=== PATIENT | male | born 1950 | race Caucasian/White ===

== ENCOUNTER 2019-08-28 09:07 | Inpatient (IN) | payer MEDICARE, SELFPAY ==
[2019-08-28 09:09] VITALS: BP 187/69; PULSE 68; RESP 22; TEMP 36.6; O2SAT 98; BMI 56.0
--- NOTE | 2019-08-28 09:16 | XRR_ITS ---
PROCEDURE INFORMATION: Exam: XR Chest, 1 View Exam date and time: 08/28/2019 9:19 AM Age: 69 years old Clinical indication: Shortness of breath; Cough TECHNIQUE: Imaging protocol: XR of the chest Views: 1 view. COMPARISON: CR Chest 1 [place] [id number] 11/01/2016 11:38 AM FINDINGS: Lungs: Poor inspiration. Decreased lung volumes. No focal peripheral lung consolidation, air bronchogram formation, or silhouette sign. Pleural space: No pleural effusion or pneumothorax. Heart/Mediastinum: The cardiac silhouette is enlarged, accentuated by epicardial fat pads. The mediastinal contours are normal. Bones/joints: No acute osseous abnormality. XR/XR chest 1V portable [id number] IMPRESSION: No pneumonia.
--- NOTE | 2019-08-28 09:18 | ECG_ITS ---
Measurements Intervals [place] Rate: 67 P: 21 FL: 174 QRS: -7 QRSD: 107 T: 65 QT: 389 QTc: 412 SINUS RHYTHM LOW QRS VOLTAGE IN PRECORDIAL LEADS [QRS DEFLECTION < 1.0 mV IN CHEST LEADS] NONSPECIFIC T-WAVE ABNORMALITY Compared to ECG 11/01/2016 11:14:30 T-wave abnormality now present First degree AV block no longer present Electronically Signed On 08-28-2019 20:23:59 CDT by Bryan Gaming M.D. [id number]
--- NOTE | 2019-08-28 09:24 | ED_ITS ---
HPI - SOB/Dyspnea General: Chief Complaint: Shortness of Breath/Dyspnea Stated Complaint: DIFFICULTY BREATHING Time Seen by Provider: 08/28/19 09:09 History of Present Illness: HPI Narrative: Pérez is a 69-year-old male who comes in complaining of shortness of breath. States he is also had increased edema and a dull chest ache. States the symptoms of been going on for the past few days and get getting progressively worse. He denies any fever or cough. He feels as though this is his congestive heart failure just getting worse. He has orthopnea and dyspnea on exertion. He states he is not for certain how much but he knows his overall body weight is gone up and that is secondary to water retention. Associated symptoms: Reports chest pain; Deny abdominal pain, chest congestion, diaphoresis, dizziness, extremity pain, fever(s), hemoptysis, nausea, orthopnea, palpitations, polydipsia, syncope or vomiting Review of Systems General: Reports: other (negative unless marked) Const: Denies: fever, chills, body aches, fatigue, malaise or diaphoresis Eyes: Denies: change in vision or blurry vision ENMT: Denies: throat pain, painful swallowing, hoarseness, ear pain, ear discharge, Change in hearing or nasal discharge Card: Reports: chest pain; Denies: palpitations, irregular heart rhythm, syncope, pre-syncope, shortness of breath on exertion or shortness of breath when lying down Resp: Reports: shortness of breath; Denies: productive cough, non-productive cough, wheezing, coughing up blood or chest congestion GI: Denies: abdominal pain, nausea, vomiting, vomiting blood, coffee grounds in vomit, diarrhea, constipation, cramping, blood in stool or black tarry stool : Denies: flank pain, difficulty urinating, painful urination, urinary frequency, urinary urgency, decreased urine ouput, urinary incontinence or blood in urine Musc: Denies: neck pain, back pain, extremity pain, extremity swelling, joint pain, joint swelling, joint warmth or joint stiffness Skin/Breast: Denies: rash, skin tenderness or yellow skin Neuro: Denies: headache, numbness in extremities, weakness in extremities, changes in sensation, lack of coordination, difficulty walking, dizziness, vertigo or confusion Endo: Denies: excessive thirst, tired all the time, cold intolerance, excessive sweating, flushing or hot flashes Angelito/Lymph: Denies: easy bruising, easy bleeding, petechiae or enlarged lymph nodes All/Imm: Denies: hives, throat swelling, tongue swelling, facial swelling or acute wheezing PFSH ED PFSH: Medical History (Updated 08/28/19 @ 12:17 by Arelis Joya) Arthritis Chronic fatigue syndrome Congestive heart failure CVA (cerebral vascular accident) Diabetes type 2, uncontrolled Gout Hyperlipidemia Hypertension Migraines Morbid obesity Surgical History No history of previous surgery Social History Smoking and tobacco status: former smoker Physical Exam Const: COMMON NORMALS: no apparent distress, oriented x3, no limitations, healthy appearing and well nourished EXAM LIMITATIONS: no altered mental status GENERAL APPEARANCE: cooperative, well kempt and well developed ORIENTATION/CONSCIOUSNESS: Yes awake HENMT: COMMON NORMALS: normocephalic, head/scalp atraumatic, hearing grossly normal bilaterally, external ears normal, EAC's normal, external nose normal and moist oral mucous membranes HEAD & SCALP: normal to inspection, normocephalic and atraumatic FACE & SINUS: normal facial exam and face symmetric NOSE: external nose normal and nares normal EXTERNAL EAR: Yes external ears normal EXTERNAL AUDITORY CANAL: EAC's normal MOUTH: oral and palatal mucosa normal and tongue normal Eye: COMMON NORMALS: PERRL, EOMs intact bilaterally, conjunctivae normal and no scleral icterus GENERAL EYE: normal appearance of both eyes and normal light reflex CONJUNCTIVA: Yes conjunctivae normal SCLERA: sclerae normal CORNEA: Yes corneas normal PUPIL: Yes PERRL DIRECT OPHTHALMOSCOPY: Yes normal light reflex Neck/C-Spine: COMMON NORMALS: full ROM, no lymphadenopathy, supple, no meningeal signs and no JVD GENERAL: Yes normal visual inspection and Yes trachea midline CERVICAL SPINE: Yes cervical ROM normal Chest: COMMONS NORMALS: inspection of chest normal and palpation of chest normal Resp: COMMON NORMALS: normal respiratory effort, no retractions and no use of accessory muscles EFFORT & INSPECTION: Yes able to speak in complete sentences AUSCULTATION: rales Cardio: COMMON NORMALS: no JVD, regular rate, regular rhythm, S1 normal heart sound, S2 normal heart sound, no gallops, no clicks, no murmurs and no rub JUGULAR VENOUS DISTENTION: no JVD RATE: regular rate RHYTHM: regular rhythm HEART SOUNDS: S1 normal and S2 normal GI: COMMON NORMALS: soft to palpation, non-tender, no hepatosplenomegaly and no masses INSPECTION: Yes normal to inspection PALPATION: Yes soft and Yes no hepatosplenomegaly : COMMON NORMALS: Yes no CVA tenderness BLADDER/KIDNEY EXAM: Yes no CVA tenderness Back/Pelvis: COMMON NORMALS: no CVA tenderness, thoracic and lumbar spine normal to inspection, no thoracic nor lumbar tenderness and thoraco-lumbar ROM normal Extremity: COMMON NORMALS: normal to inspection, full ROM, normal capillary refill, no joint enlargement and no calf tenderness NARRATIVE EXTREMITY EXAM: Bilateral lower extremity edema and swelling Neuro: COMMON NORMALS: oriented x3, CN's II-XII intact bilaterally, moves all extremities, no focal motor deficits and no sensory deficits noted MENINGEAL SIGNS: Yes no meningeal signs Psych: COMMON NORMALS: mental status grossly normal, thought process normal, cooperative, affect normal, speech normal and activity/motor behavior normal APPEARANCE: Yes well kempt SPEECH: Yes normal speech THOUGHT PROCESS: normal thought process Skin: COMMON NORMALS: no rashes or lesions noted, skin turgor normal, no jaundice, no petechiae and no mottling GENERAL SKIN EXAM: no rashes or lesions noted and turgor normal Course Vital Signs: Vital signs: Vital Signs Temperature 97.8 F 08/28/19 09:09 Pulse Rate 68 08/28/19 09:09 Respiratory Rate 22 H 08/28/19 09:09 Blood Pressure 187/69 08/28/19 09:09 Pulse Oximetry 98 08/28/19 09:09 MDM - SOB/Dyspnea MDM Narrative: Medical decision making narrative: The case was reviewed with Dr. Ba. He agrees to come admit the patient. He will come to see the patient in the ER and write orders. He would like a CT scan of the patient's abdominal panniculus to be certain there is no deep space abscess. He will evaluate the patient after this is performed. Lab Data: Attestation: I reviewed the patient's lab results. Labs: Lab Results 08/28/19 08/28/19 08/28/19 Range/Units 08:58 08:58 08:58 WBC 21.9 H (4.0-10.0) 10^3/ uL RBC 4.87 (4.1-5.3) 10^6/u L Hgb 12.7 (11.7-16.6) g/dL Hct 42.5 (42.0-52.0) % MCV 87.3 (80-94) fL MCH 26.1 L (28.0-34.0) pg MCHC 29.9 L (30.0-36.0) g/dL RDW 16.5 H (12.1-15.1) % Plt Count 459 H (130-400) 10^3/c mm MPV 10.0 (7.4-10.4) fL Neut % (Auto) 42.8 % Lymph % (Auto) 49.3 % Dickson % (Auto) 3.9 % Eos % (Auto) 3.1 % Baso % (Auto) 0.4 % Neut # (Auto) 9.4 H (1.8-7.7) 10^3/u L Lymph # (Auto) 10.8 H (0.8-4.8) 10^3/u L Dickson # (Auto) 0.9 (0.2-0.9) 10^3/u L Eos # (Auto) 0.7 (0.0-0.8) 10^3/u L Baso # (Auto) 0.1 (0.0-0.1) 10^3/u L Nucleated RBC % (a uto) 0 % Nucleated RBCs # 0.0 /100WBC PT 12.70 (10.5-13.3) SECO NDS INR 0.96 (0.8-1.2) Specimen Type Sample Site ABG pH (7.35-7.45) ABG pCO2 (35-45) mmHg ABG pO2 (80.0-100.0) mmH g ABG HCO3 (22-26) mmol/L ABG Base Excess (-2.0-2.0) mmol/ L Kevin Test Hematocrit (42-52) % O2 Delivery Device FiO2 % Road Crossing Guard ID Sodium 141 (136-145) mmol/L Potassium 4.0 (3.5-5.1) mmol/L Chloride 100 (98-107) mmol/L Carbon Dioxide 28 (22-29) mmol/L Anion Gap 17.0 (5-19) BUN 9 (8-23) mg/dL Creatinine 0.9 (0.7-1.2) mg/dL Glucose 82 (65-115) mg/dL Calculated Osmolal ity 287 (285-295) mOsm/k g Lactic Acid (0.5-2.2) mmol/L Calcium 9.4 (8.5-10.5) mg/dL Magnesium 2.0 (1.7-2.3) mg/dL Total Bilirubin 0.2 (0.15-1.2) mg/dL AST 18 (0-40) U/L ALT 11 (0-41) U/L Alkaline Phosphata se 128 (40-130) IU/L Troponin T Baselin e (0-15) ng/mL Troponin T 120 Min venetie (0-15) ng/mL Delta Troponin T (0-10) ABS# NT-Pro-B Natriuret Pep 128 H (0-125) pg/mL Total Protein 7.5 (6.6-8.7) g/dL Albumin 3.6 (3.5-5.2) g/dL Globulin 3.9 (1.3-4.6) g/dL Urine Color (Yellow) Urine Appearance (CLEAR) Urine pH (5-7) Ur Specific Gravit y (1.005-1.030) Urine Protein (Negative) Urine Glucose (UA) (Normal) Urine Ketones (Negative) Urine Blood (Negative) Urine Nitrate (Negative) Urine Bilirubin (NEGATIVE) Urine Urobilinogen (Negative) mg/dL Ur Leukocyte Bernice ase (Negative) Urine RBC (0-2) /hpf Urine WBC (0-5) /hpf Ur Squamous Epith Cells (0-5) Urine Bacteria (NONE) Urine Mucus 08/28/19 08/28/19 08/28/19 Range/Units 08:58 09:22 10:18 WBC (4.0-10.0) 10^3/ uL RBC (4.1-5.3) 10^6/u L Hgb (11.7-16.6) g/dL Hct (42.0-52.0) % MCV (80-94) fL MCH (28.0-34.0) pg MCHC (30.0-36.0) g/dL RDW (12.1-15.1) % Plt Count (130-400) 10^3/c mm MPV (7.4-10.4) fL Neut % (Auto) % Lymph % (Auto) % Dickson % (Auto) % Eos % (Auto) % Baso % (Auto) % Neut # (Auto) (1.8-7.7) 10^3/u L Lymph # (Auto) (0.8-4.8) 10^3/u L Dickson # (Auto) (0.2-0.9) 10^3/u L Eos # (Auto) (0.0-0.8) 10^3/u L Baso # (Auto) (0.0-0.1) 10^3/u L Nucleated RBC % (a uto) % Nucleated RBCs # /100WBC PT (10.5-13.3) SECO NDS INR (0.8-1.2) Specimen Type Arterial Sample Site Radial, left ABG pH 7.41 (7.35-7.45) ABG pCO2 45.3 H (35-45) mmHg ABG pO2 70.9 L (80.0-100.0) mmH g ABG HCO3 28.4 H (22-26) mmol/L ABG Base Excess 3.0 H (-2.0-2.0) mmol/ L Kevin Test Pos Hematocrit 39.7 L (42-52) % O2 Delivery Device Room air FiO2 21.0 % Road Crossing Guard ID cak Sodium (136-145) mmol/L Potassium (3.5-5.1) mmol/L Chloride (98-107) mmol/L Carbon Dioxide (22-29) mmol/L Anion Gap (5-19) BUN (8-23) mg/dL Creatinine (0.7-1.2) mg/dL Glucose (65-115) mg/dL Calculated Osmolal ity (285-295) mOsm/k g Lactic Acid (0.5-2.2) mmol/L Calcium (8.5-10.5) mg/dL Magnesium (1.7-2.3) mg/dL Total Bilirubin (0.15-1.2) mg/dL AST (0-40) U/L ALT (0-41) U/L Alkaline Phosphata se (40-130) IU/L Troponin T Baselin e 17 H (0-15) ng/mL Troponin T 120 Min ven[place] (0-15) ng/mL Delta Troponin T (0-10) ABS# NT-Pro-B Natriuret Pep (0-125) pg/mL Total Protein (6.6-8.7) g/dL Albumin (3.5-5.2) g/dL Globulin (1.3-4.6) g/dL Urine Color Yellow (Yellow) Urine Appearance Clear (CLEAR) Urine pH 5 (5-7) Ur Specific Gravit y 1.020 (1.005-1.030) Urine Protein Neg (Negative) Urine Glucose (UA) Norm (Normal) Urine Ketones 1+ H (Negative) Urine Blood 2+ H (Negative) Urine Nitrate Negative (Negative) Urine Bilirubin 1+ H (NEGATIVE) Urine Urobilinogen Norm (Negative) mg/dL Ur Leukocyte Bernice ase Negative (Negative) Urine RBC 5-10 H (0-2) /hpf Urine WBC 0-4 H (0-5) /hpf Ur Squamous Epith Cells 0-4 H (0-5) Urine Bacteria Trace (NONE) Urine Mucus 1+ 08/28/19 08/28/19 Range/Units 10:29 11:20 WBC (4.0-10.0) 10^3/ uL RBC (4.1-5.3) 10^6/u L Hgb (11.7-16.6) g/dL Hct (42.0-52.0) % MCV (80-94) fL MCH (28.0-34.0) pg MCHC (30.0-36.0) g/dL RDW (12.1-15.1) % Plt Count (130-400) 10^3/c mm MPV (7.4-10.4) fL Neut % (Auto) % Lymph % (Auto) % Dickson % (Auto) % Eos % (Auto) % Baso % (Auto) % Neut # (Auto) (1.8-7.7) 10^3/u L Lymph # (Auto) (0.8-4.8) 10^3/u L Dickson # (Auto) (0.2-0.9) 10^3/u L Eos # (Auto) (0.0-0.8) 10^3/u L Baso # (Auto) (0.0-0.1) 10^3/u L Nucleated RBC % (a uto) % Nucleated RBCs # /100WBC PT (10.5-13.3) SECO NDS INR (0.8-1.2) Specimen Type Sample Site ABG pH (7.35-7.45) ABG pCO2 (35-45) mmHg ABG pO2 (80.0-100.0) mmH g ABG HCO3 (22-26) mmol/L ABG Base Excess (-2.0-2.0) mmol/ L Kevin Test Hematocrit (42-52) % O2 Delivery Device FiO2 % Road Crossing Guard ID Sodium (136-145) mmol/L Potassium (3.5-5.1) mmol/L Chloride (98-107) mmol/L Carbon Dioxide (22-29) mmol/L Anion Gap (5-19) BUN (8-23) mg/dL Creatinine (0.7-1.2) mg/dL Glucose (65-115) mg/dL Calculated Osmolal ity (285-295) mOsm/k g Lactic Acid 1.7 (0.5-2.2) mmol/L Calcium (8.5-10.5) mg/dL Magnesium (1.7-2.3) mg/dL Total Bilirubin (0.15-1.2) mg/dL AST (0-40) U/L ALT (0-41) U/L Alkaline Phosphata se (40-130) IU/L Troponin T Baselin e (0-15) ng/mL Troponin T 120 Min venetie 14.68 (0-15) ng/mL Delta Troponin T -2.76 L (0-10) ABS# NT-Pro-B Natriuret Pep (0-125) pg/mL Total Protein (6.6-8.7) g/dL Albumin (3.5-5.2) g/dL Globulin (1.3-4.6) g/dL Urine Color (Yellow) Urine Appearance (CLEAR) Urine pH (5-7) Ur Specific Gravit y (1.005-1.030) Urine Protein (Negative) Urine Glucose (UA) (Normal) Urine Ketones (Negative) Urine Blood (Negative) Urine Nitrate (Negative) Urine Bilirubin (NEGATIVE) Urine Urobilinogen (Negative) mg/dL Ur Leukocyte Bernice ase (Negative) Urine RBC (0-2) /hpf Urine WBC (0-5) /hpf Ur Squamous Epith Cells (0-5) Urine Bacteria (NONE) Urine Mucus Imaging Data^: CXR: My impression: Cardiomegaly but no evidence of any acute cardiopulmonary findings. EKG Data^: EKG 1: Attestation: I personally reviewed and interpreted this EKG as follows: EKG Interpretation Date: 08/28/19 EKG interpretation time: 09:24 Interpretation: Normal sinus rhythm at 67 beats a minute, left axis deviation, no acute ST or T wave findings. Similar to previous. EKG 2: Attestation: I personally reviewed and interpreted this EKG as follows: EKG Interpretation Date: 08/28/19 EKG interpretation time: 11:34 Interpretation: Normal sinus rhythm at 64 beats a minute, left axis deviation, no acute ST or T wave changes. Discharge Plan Discharge Patient Disposition: Admitted As Inpatient Clinical Impression: Sepsis Condition: Stable Prescriptions: No Action furosemide 40 mg tablet See Rx Instructions .ROUTE .COMPLEX RF: 0 latanoprost 0.005 % drops See Rx Instructions .ROUTE .COMPLEX RF: 0 bupropion HCl 150 mg tablet sustained-release 12 hr 150 mg PO BID RF: 0 atorvastatin 20 mg tablet 20 mg PO DAILY RF: 0 venlafaxine 75 mg tablet See Rx Instructions .ROUTE .COMPLEX RF: 0 trazodone 50 mg tablet 50 mg PO BEDTIME RF: 0 Tylenol Extra Strength 500 mg Tablet 1,000 mg PO PRN RF: 0 triamcinolone acetonide 0.1 % Cream 1 applic TOPICAL BID RF: 0 quinapril 40 mg tablet 40 mg PO BID RF: 0 nystatin 100,000 unit/gram Cream 1 applic TOPICAL BID RF: 0 metoprolol tartrate 50 mg tablet 50 mg PO BID RF: 0 ibuprofen 200 mg Tablet 800 mg PO PRN RF: 0 verapamil 240 mg tablet extended release 240 mg PO DAILY RF: 0 allopurinol 300 mg tablet 300 mg PO DAILY RF: 0 fluticasone propionate 50 mcg/actuation spray,suspension 1 spray INTRANASAL DAILY RF: 0 dorzolamide 2 % drops See Rx Instructions .ROUTE .COMPLEX RF: 0 buspirone 15 mg tablet 15 mg PO QID RF: 0 hydroxyzine pamoate 25 mg capsule 25 mg PO TID PRN (Reason: UNKNOWN) RF: 0 Novolog Flexpen U-100 Insulin 100 unit/mL (3 mL) insulin pen See Rx Instructions .ROUTE .COMPLEX RF: 0 Levemir FlexTouch U-100 Insuln 100 unit/mL (3 mL) insulin pen 60 unit SUBCUT BEDTIME RF: 0 Coding Level of Care Code ED Embedded Software Engineer for Chg Fwd Exam Comprehensive
[2019-08-28 09:26] LABS: Nucleated Red Blood Cells % 0 %
[2019-08-28 09:30] LABS: Basophils # 0.1 10^3/uL (0.0-0.1); Basophils % 0.4 %; Eosinophils # 0.7 10^3/uL (0.0-0.8); Eosinophils % 3.1 %; Hematocrit 42.5 % (42.0-52.0); Hemoglobin 12.7 g/dL (11.7-16.6); Lymphocytes # 10.8 10^3/uL (0.8-4.8); Lymphocytes % 49.3 %; Mean Corpuscular HGB Conc 29.9 g/dL (30.0-36.0); Mean Corpuscular Hemoglobin 26.1 pg (28.0-34.0); Mean Corpuscular Volume 87.3 fL (80-94); Monocytes # 0.9 10^3/uL (0.2-0.9); Monocytes % 3.9 %; Neutrophils # 9.4 10^3/uL (1.8-7.7); Neutrophils % 42.8 %; Platelet Count 459 10^3/cmm (130-400); Red Blood Count 4.87 10^6/uL (4.1-5.3); Red Cell Distribution Width 16.5 % (12.1-15.1); White Blood Count 21.9 10^3/uL (4.0-10.0)
[2019-08-28 09:34] LABS: ABG PCO2 45.3 mmHg (35-45); ABG PH Result 7.41 (7.35-7.45); Arterial Blood Gas Hematocrit 39.7 % (42-52); Blood Gas Allen Test Pos; Blood Gas Sample Site Radial, left; Blood Gas Sample Type Arterial; HCO3 ABG 28.4 mmol/L (22-26); Oxygen Device ROOM AIR; PO2 ABG 70.9 mmHg (80.0-100.0)
[2019-08-28 09:34] LABS: INR 0.96 (0.8-1.2)
[2019-08-28 09:45] LABS: Troponin(5th) Baseline 17 ng/mL (0-15)
[2019-08-28 09:54] LABS: Alanine Aminotransferase 11 U/L (0-41); Albumin Level 3.6 g/dL (3.5-5.2); Alkaline Phosphatase 128 IU/L (40-130); Aspartate Amino Transferase 18 U/L (0-40); Blood Urea Nitrogen 9 mg/dL (8-23); Calcium 9.4 mg/dL (8.5-10.5); Carbon Dioxide 28 mmol/L (22-29); Chloride 100 mmol/L (98-107); Globulin 3.9 g/dL (1.3-4.6); Glucose 82 mg/dL (65-115); NT Pro B Type Natriuretic Pept 128 pg/mL (0-125); Osmolality Calculated 287 mOsm/kg (285-295); Sodium 141 mmol/L (136-145); Total Bilirubin 0.2 mg/dL (0.15-1.2); Total Protein 7.5 g/dL (6.6-8.7)
[2019-08-28 09:58] LABS: Slide Review Slide Review Perform
[2019-08-28 10:48] LABS: Lactic Sepsis W/Reflex 1.7 mmol/L (0.5-2.2)
[2019-08-28] MEDS: piperacillin-tazobactam 3.375 GM in sodium chloride 0.9% (plus) 50 ML IV ×2 (10:55→17:32)
--- NOTE | 2019-08-28 11:18 | ECG_ITS ---
Measurements Intervals [place] Rate: 64 P: -10 [place]: 183 QRS: -10 QRSD: 107 T: 77 QT: 412 QTc: 427 SINUS RHYTHM NONSPECIFIC T-WAVE ABNORMALITY Compared to ECG 11/01/2016 11:14:30 T-wave abnormality now present First degree AV block no longer present Electronically Signed On 08-28-2019 20:26:27 CDT by Bryan Gaming M.D. [email or web address]
[2019-08-28 11:35] LABS: Protein Urine Neg (Negative); Urine Appearance Clear (CLEAR); Urine Color Yellow (Yellow); pH Urine 5 (5-7)
[2019-08-28 11:36] LABS: Bilirubin Urine 1+ (NEGATIVE); Blood Urine 2+ (Negative); Glucose Urine UA Norm (Normal); Ketones Urine 1+ (Negative); Leukocyte Esterase Urine Negative (Negative); Nitrate Urine Negative (Negative); Urobilinogen Urine Norm (Negative)
[2019-08-28 11:47] LABS: Troponin 5 2HR 14.68 ng/mL (0-15)
[2019-08-28 11:51] LABS: Add Urine Culture? No; Bacteria Urine TRACE; Mucus Urine 1+; Squamous Epithelial Cell Urine 0-4 (0-5); WBC Urine 0-4 /hpf (0-5)
[2019-08-28 11:57] LABS: Troponin 5 2HR Delta -2.76 ABS# (0-10)
--- NOTE | 2019-08-28 12:12 | CTR_ITS ---
PROCEDURE INFORMATION: Exam: CT Abdomen And Pelvis With Contrast Exam date and time: 08/28/2019 12:47 PM Age: 69 years old Clinical indication: Pannus pain and redness. TECHNIQUE: Imaging protocol: Computed tomography of the abdomen and pelvis with intravenous contrast. Total DLP: 2911.35 mGy-cm Radiation optimization: All CT scans at this facility use at least one of these dose optimization techniques: automated exposure control; mA and/or kV adjustment per patient size (includes targeted exams where dose is matched to clinical indication); or iterative reconstruction. Contrast material: OMNI 300; Contrast volume: 95 ml; Contrast route: 20G; COMPARISON: No relevant prior studies available. FINDINGS: Lungs: There is left lower lobe compressive and dependent atelectasis. Pleural space: There is a small left pleural effusion, and a trace right pleural effusion. Liver: Multiple calcified granulomas present in a nonenlarged liver. Gallbladder and bile ducts: No calcified gallstones, gallbladder wall thickening, or pericholecystic inflammation. No biliary ductal dilation. Pancreas: No pancreatic mass. No peripancreatic inflammation. No pancreatic ductal dilation. Spleen: Multiple calcified granulomas present in a nonenlarged spleen. Adrenals: No adrenal mass. Kidneys and ureters: There is left nephrolithiasis. No hydronephrosis. There are bilateral simple appearing renal cysts measuring up to 1.9 cm in size. Stomach and bowel: No bowel obstruction, colitis or diverticulitis. Appendix: The appendix has a normal caliber with no wall thickening. No periappendiceal stranding. Intraperitoneal space: No ascites or pneumoperitoneum. Vasculature: There is coronary artery disease. No abdominal aortic aneurysm. No iliac or common femoral artery aneurysm. Lymph nodes: No enlarged lymph nodes. Bladder: The urinary bladder is decompressed with a Adam catheter. Reproductive: Unremarkable as visualized. Bones/joints: There is multilevel disc degeneration and facet arthropathy in the lumbar spine and lower thoracic spine. Soft tissues: There is increased attenuation and stranding in the subcutaneous fat of the patient's pannus with overlying skin thickening. Given the history this is compatible with a cellulitis. No fluid collection that would indicate an abscess. CT/CT abdomen pelvis w con* [id number] IMPRESSION: Superficial soft tissue cellulitis without abscess formation. COMMENTS: Consistent with the [employer]'s Incidental Findings Committee white paper (J Am Rekha Radiol 2018): Any incidental cystic renal lesion classified in this report as too small to characterize or simple appearing is likely a benign cyst. No follow-up imaging is recommended for these lesions per consensus recommendations based on imaging criteria. Radiation Dose CTDIVOL = (mGy): DLP = 2911.35 (mGy-cm)
[2019-08-28] MEDS: iohexol 300 mg/mL 100 mL Btl IV (12:46)
[2019-08-28 13:19] LABS: Procalcitonin 0.06 ng/mL (0-0.5)
--- NOTE | 2019-08-28 13:31 | P.HP_ITS ---
Providers/Chief Complaint Chief Complaint: DIFFICULTY BREATHING History of Present Illness Pérez Priest is a 69 year old male with a past medical history of hypertension, hyperlipidemia, transient ischemic attack, insulin-dependent type 2 diabetes mellitus, depression and anxiety, chronic bilateral lower extremity edema, morbid obesity, with chronic pannus, who presents to the emergency room due to complaints of shortness of breath. Patient states that about 2 weeks ago, he had constipation, he had not had a bowel movement in over a week, so he stopped taking his Lasix thinking that it might be contributing to his constipation. Patient's constipation improved, but he had not taken Lasix in a week, so for the past week patient has been complaining of increased shortness of breath, with bilateral lower extremity edema. Patient denies a history of heart failure, but states that he uses a Lasix for bilateral lower extremity edema and and shortness of breath. Patient states that recently he has been short of breath with less than 10 feet, no shortness of breath at rest, has a nonproductive cough, no fevers, no chills, no recent travel, no known exposure to COVID-19, no orthopnea, no paroxysmal nocturnal dyspnea, no hemoptysis, by no calf pain, no history of DVTs or PEs, no history of smoking, no history of COPD, no active wheezing Patient has a chronic pannus, states that his pannus has been looking a little bit more red than usual, no pain, no discharge, no fevers, no chills, Review of Systems Const: Denies: fever, chills, fatigue or malaise Eyes: Denies: change in vision or blurry vision ENMT: Denies: nasal congestion Resp: Reports: shortness of breath and non-productive cough; Denies: productive cough or wheezing GI: Denies: abdominal pain, nausea, vomiting, vomiting blood, diarrhea, constipation, blood in stool or black tarry stool : Denies: flank pain, difficulty urinating, painful urination or urinary frequency Musc: Denies: neck pain or back pain Skin/Breast: Denies: rash Neuro: Denies: headache, dizziness or vertigo Psych: Denies: anxiety or depression Endo: Denies: excessive urination or excessive thirst Medications/Allergies Home Medications Medication Instructions Recorded Confirmed Last Taken Type acetaminophen [Tylenol Extra 1,000 mg PO PRN 08/28/19 08/28/19 Unknown History Strength] allopurinol 300 mg PO DAILY 08/28/19 08/28/19 08/28/19 History atorvastatin 20 mg PO DAILY 08/28/19 08/28/19 08/27/19 History bupropion HCl 150 mg PO BID 08/28/19 08/28/19 08/28/19 History buspirone 15 mg PO QID 08/28/19 08/28/19 08/28/19 History dorzolamide See Rx Instructions .ROUTE .COMPLEX 08/28/19 08/28/19 08/27/19 History fluticasone propionate 1 spray INTRANASAL DAILY 08/28/19 08/28/19 08/28/19 History furosemide See Rx Instructions .ROUTE .COMPLEX 08/28/19 08/28/19 Unknown History hydroxyzine pamoate 25 mg PO TID PRN 08/28/19 08/28/19 08/27/19 History ibuprofen 800 mg PO PRN 08/28/19 08/28/19 Unknown History insulin aspart U-100 [Novolog See Rx Instructions .ROUTE .COMPLEX 08/28/19 08/28/19 08/28/19 History Flexpen U-100 Insulin] 25 UNITS insulin detemir U-100 [Levemir 60 unit SUBCUT BEDTIME 08/28/19 08/28/19 08/27/19 History FlexTouch U-100 Insuln] latanoprost See Rx Instructions .ROUTE .COMPLEX 08/28/19 08/28/19 08/27/19 History metoprolol tartrate 50 mg PO BID 08/28/19 08/28/19 08/28/19 History nystatin 1 applic TOPICAL BID 08/28/19 08/28/19 Unknown History quinapril 40 mg PO BID 08/28/19 08/28/19 08/28/19 History trazodone 50 mg PO BEDTIME 08/28/19 08/28/19 08/27/19 History triamcinolone acetonide 1 applic TOPICAL BID 08/28/19 08/28/19 Unknown History venlafaxine See Rx Instructions .ROUTE .COMPLEX 08/28/19 08/28/19 08/28/19 History verapamil 240 mg PO DAILY 08/28/19 08/28/19 08/28/19 History Allergies Allergy/AdvReac Type Severity Reaction Status Date / Time No Known Allergies Allergy Verified 08/28/19 09:15 PFSH Acute PFSH: Medical History (Updated 08/28/19 @ 13:37 by Josue Ba MD) Arthritis Chronic fatigue syndrome Congestive heart failure CVA (cerebral vascular accident) Diabetes type 2, uncontrolled Gout Hyperlipidemia Hypertension Migraines Morbid obesity Surgical History No history of previous surgery Family History (Updated 08/28/19 @ 13:35 by Josue Ba MD) Other CAD (coronary artery disease) Social History Smoking and tobacco status: former smoker Vitals/I&O/Wt Last Vital Signs Temp 97.8 F 08/28/19 09:09 Pulse 68 08/28/19 09:09 Resp 22 H 08/28/19 09:09 BP 187/69 08/28/19 09:09 Pulse Ox 98 08/28/19 09:09 Weight last 48 hrs Weight 192.777 kg Physical Exam Const: COMMON NORMALS: no apparent distress and oriented x3 GENERAL APPEARANCE: cooperative and comfortable HENMT: COMMON NORMALS: normocephalic HEAD & SCALP: normocephalic Eye: COMMON NORMALS: PERRL, EOMs intact bilaterally and no papilledema GENERAL EYE: normal appearance of both eyes PUPIL: Yes PERRL DIRECT OPHTHA LMOSCOPY: Yes no papilledema Neck/C-Spine: COMMON NORMALS: full ROM, no lymphadenopathy, no JVD and thyroid normal THYROID: thyroid normal Lymph: LYMPHATIC: no lymphadenopathy noted Resp: COMMON NORMALS: normal respiratory effort, no retractions, no use of accessory muscles and clear to auscultation bilaterally AUSCULTATION: clear to auscultation bilaterally Cardio: COMMON NORMALS: no JVD, regular rate, regular rhythm, S1 normal heart sound, S2 normal heart sound, no gallops, no clicks and no murmurs RATE: regular rate RHYTHM: regular rhythm HEART SOUNDS: S1 normal and S2 normal GI: COMMON NORMALS: normal to inspection, nondistended, normoactive bowel sounds, soft to palpation and non-tender PALPATION: Yes soft and Yes no hepatosplenomegaly OTHER: A large pannus is present, with cobblestoning, superficial erythema, no tenderness, no discharge, Extremity: COMMON NORMALS: normal to inspection, full ROM and no pedal edema Neuro: COMMON NORMALS: oriented x3, CN's II-XII intact bilaterally, moves all extremities and no focal motor deficits Psych: COMMON NORMALS: mental status grossly normal, thought process normal and cooperative THOUGHT PROCESS: normal thought process Skin: NARRATIVE SKIN EXAM: 1+ pitting edema bilaterally Data : 08/28/19 08:58 08/28/19 08:58 A&P Assessment and plan (1) Acute respiratory failure: -Secondary to heart failure exacerbation -It is not known if he has diastolic or systolic heart failure -Patient has bilateral lower extremity edema, minimal pulmonary vascular congestion on chest x-ray, his BNP is minimal at 128, but likely an underes timation given his obesity -White blood cell count is 21,000, although lymphocyte predominant Plan: -Lasix 40 mg IV 3 times daily -Adam catheter in place, strict I's and O's, fluid restriction to 1500 cc -We will order cardiac echocardiogram -Pro-Khadar, CRP, ESR, influenza swab Status: Acute (2) Cellulitis: -Patient pannus has evidence of cellulitis -White blood cell count 21,000, CRP 8, pro-Khadar 0.06, lactic acid 1.7 -CT scan of the abdomen shows evidence of cellulitis PLAN: -Broad-spectrum antibiotics vancomycin and Zosyn -Monitor for clinical progress Status: Acute (3) Hyperlipidemia: Status: Acute (4) Congestive heart failure: Status: Acute (5) Hypertension: Status: Acute (6) Diabetes type 2, uncontrolled: -Moderate dose sliding scale -Levemir 60 units at bedtime Status: Acute (7) Gout: Status: Acute (8) Morbid obesity: Status: Acute Attestations Medical Necessity Statement*: Patient requires hospitalization, greater than 2 midnights, acute respiratory failure secondary to CHF Coding Level of Care Code Acute Plate Mounter for [facility] Diagnoses Acute respiratory failure J96.00 Cellulitis L03.90 Hyperlipidemia E78.5 Congestive heart failure I50.9 Hypertension I10 Diabetes type 2, uncontrolled E11.65 Gout M10.9 Morbid obesity E66.01
[2019-08-28 13:37] LABS: Erythrocyte Sedimentation Rate 53 mm/hr (0-10)
[2019-08-28 13:45] LABS: Influenza A by IFA Negative (Negative); Influenza B by IFA Negative (Negative)
[2019-08-28 14:02] VITALS: BP 178/100; PULSE 75; RESP 16; O2SAT 94
[2019-08-28 14:39] VITALS: BP 194/73; PULSE 74; RESP 20; TEMP 36.6; O2SAT 96
--- NOTE | 2019-08-28 14:39 | USCV_ITS ---
Pérez Priest Age: 69 Gender: M : 1950 Exam Date: 08/28/2019 15:17 Ordering Phys: Josue Ba MD Technologist: Radha Belle [place] [facility] [place]: Shortness of breath BP: 178 / 100 HR: 67 Rhythm: Sinus Technical Quality: Poor because of body habitus MEASUREMENTS (Male / Female) Normal Values 2D ECHO LV Diastolic Diameter PLAX 3.7 cm 4.2 - 5.9 / 3.9 - 5.3 cm LV Systolic Diameter PLAX 2.3 cm LV Chamber Size 3.4 cm IVS Diastolic Thickness 1.7 cm 0.6 - 1.0 / 0.6 - 0.9 cm IVS Systolic Thickness 2.3 cm LVPW Diastolic Thickness 1.3 cm 0.6 - 1.0 / 0.6 - 0.9 cm LVPW Systolic Thickness 1.7 cm RV Chamber Size 2.4 cm LVOT Diameter 2.2 cm LV Ejection Fraction 2D Teich 69.6 % LA Diameter 5.6 cm LA Width 2.9 cm LA Height 6.1 cm RA Width 3.8 cm RA Height 5.0 cm Aorta at Sinotubular Diameter 2.8 cm M-MODE LV Diastolic Diameter MM 5.2 cm 4.2 - 5.9 / 3.9 - 5.3 cm LV Systolic Diameter MM 2.9 cm LV Ejection Fraction MM Teich 75.0 % IVS Diastolic Thickness MM 1.8 cm 0.6 - 1.0 / 0.6 - 0.9 cm IVS Systolic Thickness MM 1.8 cm LVPW Diastolic Thickness MM 2.0 cm 0.6 - 1.0 / 0.6 - 0.9 cm LVPW Systolic Thickness MM 1.6 cm Aortic Annulus Diameter 3.8 cm LA Ao Ratio MM 1.5 DOPPLER AV Peak Velocity 125.0 cm/s LVOT Peak Velocity 92.0 cm/s AV Area Cont Eq vti 3.0 cm squared AV Area Cont Eq pk 2.8 cm squared MV Area PHT 4.9 cm squared Mitral E to A Ratio 1.2 MV E' Velocity 11.0 cm/s Mitral E to MV E' Ratio 16.6 Mitral E to LV E' Lateral Ratio 12.4 Mitral E to LV E' Septal Ratio 25.9 TV Peak E Velocity 125.0 cm/s Right Atrial Pressure 3.0 mmHg FINDINGS Left Ventricle Normal left ventricular size and systolic function, EF 60%. No gross wall motion normalities. Right Ventricle Not visualized well. Possibly of normal size. Right Atrium Right atrium not well visualized. Left Atrium Normal left atrial size. Mitral Valve No gross abnormalities noted Aortic Valve No gross abnormalities noted Tricuspid Valve Not visualized well Pulmonic Valve Not visualized well Pericardium No pericardial effusion. Aorta Normal aortic annulus size. CONCLUSIONS Normal left ventricular size and systolic function, EF 60%. No gross wall motion normalities. The aortic and mitral valve appear to no gross abnormalities. There is no pericardial effusion. Technically difficult study because of the poor ultrasonic window. Dr Bryan Gaming MD FACC (Electronically Signed) Final Date: 28 August 2019 19:59 S
--- NOTE | 2019-08-28 15:18 | ECG_ITS ---
Measurements Intervals [place] Rate: 72 P: 1 LA: 169 QRS: -14 QRSD: 111 T: 69 QT: 408 QTc: 447 SINUS RHYTHM MODERATE INTRAVENTRICULAR CONDUCTION DELAY [110+ ms QRS DURATION] NONSPECIFIC T-WAVE ABNORMALITY Compared to ECG 11/01/2016 11:14:30 Intraventricular conduction delay now present T-wave abnormality now present First degree AV block no longer present Electronically Signed On 08-28-2019 20:27:09 CDT by Bryan Gaming M.D. [email or web address]
[2019-08-28 15:40] LABS: Chol HDL Ratio 2.34 mg/dL (1.0-5.00); Cholesterol 136 mg/dL (0-200); HDL Cholesterol 58 mg/dL (60-100); LDL Cholesterol Calculated 60 mg/dL (50-129); LDL HDL Ratio 1.03 RATIO (0.00-3.22); Triglycerides 89 mg/dL (0-150)
[2019-08-28 15:42] LABS: Estmated Average Glucose 146; Hemoglobin A1C 6.7 % (4.0-6.0); Troponin 5 6HR 15.32 ng/mL (0-15)
[2019-08-28 15:50] VITALS: BP 202/69; PULSE 74; RESP 20; TEMP 36.7; O2SAT 96
[2019-08-28 15:56] LABS: Troponin 5 6HR Delta -1.68 ng/L (0-12)
[2019-08-28] MEDS: FUROsemide 10 mg/mL SDV 4mL 40 MG IVP ×2 (16:42→20:28)
[2019-08-28] MEDS: enoxaparin 40 mg/0.4 mL Syringe SUBCUT (16:42)
[2019-08-28 16:48] LABS: Glucose Point of Care 146 mg/dL (70-110)
[2019-08-28 16:53] VITALS: PULSE 65; O2SAT 96
[2019-08-28] MEDS: buPROPion SR (12 HR) 150 mg Tablet PO (17:29)
[2019-08-28] MEDS: metoprolol tartrate 50 mg Tablet PO (17:29)
[2019-08-28] MEDS: nystatin cream 30 gm 1 APPLIC TOPICAL (17:45)
[2019-08-28] MEDS: triamcinolone 0.1% cream 15 gm 1 APPLIC TOPICAL (17:45)
[2019-08-28] MEDS: LORazepam 0.5 mg Tablet PO (17:55)
[2019-08-28 20:00] VITALS: BP 176/75; PULSE 74; RESP 22; TEMP 37; O2SAT 93
[2019-08-28] MEDS: hyDROXYzine 25 mg Capsule PO (20:28)
[2019-08-28] MEDS: venlafaxine 75 mg Tablet PO (20:28)
[2019-08-28] MEDS: trazodone 50 mg Tablet PO (20:28)
[2019-08-28 21:00] LABS: Glucose Point of Care 151 mg/dL (70-110)
[2019-08-29] VITALS (8 sets, daily range): BP systolic 166–208; BP diastolic 66–90; PULSE 63–67; RESP 18–118; TEMP 36.3–36.9; O2SAT 91–96
[2019-08-29] MEDS: piperacillin-tazobactam 3.375 GM in sodium chloride 0.9% (plus) 50 ML IV ×3 (01:57→19:20)
[2019-08-29] MEDS: venlafaxine 75 mg Tablet 150 MG PO ×2 (05:33→11:53)
[2019-08-29 05:35] LABS: Basophils # 0.1 10^3/uL (0.0-0.1); Basophils % 0.5 %; Eosinophils # 0.6 10^3/uL (0.0-0.8); Eosinophils % 2.8 %; Hematocrit 41.1 % (42.0-52.0); Hemoglobin 12.4 g/dL (11.7-16.6); Lymphocytes % 50.4 %; Mean Corpuscular HGB Conc 30.2 g/dL (30.0-36.0); Mean Corpuscular Hemoglobin 26.2 pg (28.0-34.0); Mean Corpuscular Volume 86.9 fL (80-94); Mean Platelet Volume 9.4 fL (7.4-10.4); Monocytes # 1.1 10^3/uL (0.2-0.9); Monocytes % 5.6 %; Neutrophils % 40.3 %; Nucleated Red Blood Cells % 0 %; Platelet Count 388 10^3/cmm (130-400); Red Blood Count 4.73 10^6/uL (4.1-5.3); Red Cell Distribution Width 16.5 % (12.1-15.1); White Blood Count 19.9 10^3/uL (4.0-10.0)
[2019-08-29 05:51] LABS: Alanine Aminotransferase 9 U/L (0-41); Albumin Level 3.2 g/dL (3.5-5.2); Alkaline Phosphatase 123 IU/L (40-130); Anion Gap 15.5 (5-19); Aspartate Amino Transferase 17 U/L (0-40); Blood Urea Nitrogen 9 mg/dL (8-23); Calcium 9.1 mg/dL (8.5-10.5); Carbon Dioxide 26 mmol/L (22-29); Chloride 98 mmol/L (98-107); Globulin 3.6 g/dL (1.3-4.6); Glucose 139 mg/dL (65-115); Magnesium 2.1 mg/dL (1.7-2.3); Osmolality Calculated 280 mOsm/kg (285-295); Phosphorus 2.6 mg/dL (2.5-4.5); Potassium 3.5 mmol/L (3.5-5.1); Sodium 136 mmol/L (136-145); Total Bilirubin 0.3 mg/dL (0.15-1.2); Total Protein 6.8 g/dL (6.6-8.7)
[2019-08-29 06:16] LABS: Slide Review Slide Review Perform
[2019-08-29 06:30] LABS: Glucose Point of Care 117 mg/dL (70-110)
[2019-08-29] MEDS: verapamil ER 240 mg Tablet PO (08:26)
[2019-08-29] MEDS: buPROPion SR (12 HR) 150 mg Tablet PO ×2 (08:26→17:48)
[2019-08-29] MEDS: metoprolol tartrate 50 mg Tablet PO ×2 (08:26→17:49)
[2019-08-29] MEDS: lisinopril 20 mg Tablet 40 MG PO (08:27)
[2019-08-29] MEDS: atorvastatin 40 mg Tablet 20 MG PO (08:28)
[2019-08-29] MEDS: allopurinol 300 mg Tablet PO (08:28)
[2019-08-29] MEDS: acetaminophen 500 mg Tablet 1000 MG PO (08:28)
[2019-08-29] MEDS: FUROsemide 10 mg/mL SDV 4mL 40 MG IVP ×2 (09:25→18:15)
[2019-08-29] MEDS: fluticasone nasal spray 16gm Btl 1 SPRAY INTRANASAL (09:25)
[2019-08-29] MEDS: chlorthalidone 25 mg Tablet PO (09:28)
[2019-08-29] MEDS: cloNIDine 0.1 mg Tablet PO ×2 (09:29→17:49)
[2019-08-29] MEDS: dorzolamide 2% Op Soln 10 mL Btl 1 DROP EYE-RIGHT ×2 (09:30→17:50)
[2019-08-29] MEDS: nystatin cream 30 gm 1 APPLIC TOPICAL ×2 (09:34→17:50)
[2019-08-29] MEDS: triamcinolone 0.1% cream 15 gm 1 APPLIC TOPICAL ×2 (09:35→17:51)
--- NOTE | 2019-08-29 09:47 | PC.CHAP ---
Pastoral Care Encounter/Spiritual Assessment Type of Contact [] Declined travel med surg rn visit [] Patient/Family/Request visit [] Outpatient visit [] Follow-up visit [] Physician referral [] Code/Alert [x] Routine visit [] Staff referral [] Actively dying [] Patient sleeping [] Family support [] [] Out of room [] Palliative care [] [] Receiving care in room [] Pre-surgical visit [] Trauma [] Long length of stay [] ICU visit [] Other: Relational/Emotional Strength [] Patient feels connected with others/family/visitors/staff [] Distress [] Loneliness/isolation [] Abandonment Spirituality of Patient [] Person of Camille [] Attends Taoism of their Camille [x] Believes in Prayer [] Reads Bible or Restorationist materials [] There are Spiritual issues to be addressed Sales Support Rep Interventions [x] Prayer [] Active listening [] Non-anxious presence [] Spiritual/emotional support [] Crisis/trauma care [] Spiritual counseling [] Bereavement support [] Provided bereavement packet [] Provided Bible/devotional materials [] Provided toy/stuffed animal, coloring book to patient or family member [] Provided Communion [] Anointing/[place] [] Salvation [x] Completed spiritual assessment [] Other: Impact on Illness or Injury [] Angry [] Fearful [] Anxious [] Often cries [] Exhaustion [] Unable to work [] Unable to attend rastafarian [] Unable to walk/stand [] Unable to read [] Unable to drive [] Unable to eat/drink [] Unable to sleep [] Unable to be with family [] Patient intubated [] Other: Summary Patient resting well, going through tests. Has a headache, has high blood pressure. Time spent with patient 25 min
--- NOTE | 2019-08-29 10:42 | PM.PN ---
Subjective Subjective: Interval history: This morning patient states that he is feeling better, shortness of breath has improved, no fevers overnight, no chills, no nausea, no vomiting Vitals/I&O/Wt Last Vital Signs Temp 97.8 F 08/29/19 07:57 Pulse 67 08/29/19 07:57 Resp 18 08/29/19 07:57 BP 200/90 08/29/19 09:30 Pulse Ox 96 08/29/19 07:57 08/28/19 08/29/19 08/29/19 22:59 06:59 14:59 Intake Total 240 / 240 600 / 840 120 / 120 Output Total 2200 / 2200 2250 / 4450 Balance -1960 / -1960 -1650 / -3610 120 / 120 Weight last 48 hrs Weight 192.777 kg Physical Exam Const: COMMON NORMALS: no apparent distress and oriented x3 GENERAL APPEARANCE: cooperative and comfortable HENMT: COMMON NORMALS: normocephalic HEAD & SCALP: normocephalic Neck/C-Spine: COMMON NORMALS: no JVD Lymph: LYMPHATIC: no lymphadenopathy noted Resp: COMMON NORMALS: normal respiratory effort, no retractions, no use of accessory muscles and clear to auscultation bilaterally AUSCULTATION: clear to auscultation bilaterally Cardio: COMMON NORMALS: no JVD, regular rate, regular rhythm, S1 normal heart sound, S2 normal heart sound, no gallops, no clicks and no murmurs RATE: regular rate RHYTHM: regular rhythm HEART SOUNDS: S1 normal and S2 normal GI: COMMON NORMALS: normal to inspection, nondistended, normoactive bowel sounds, soft to palpation and non-tender PALPATION: Yes soft OTHER: A large pannus is present, with cobblestoning, superficial erythema, no tenderness, no discharge, Extremity: COMMON NORMALS: normal to inspection, full ROM and no pedal edema Neuro: COMMON NORMALS: oriented x3 Skin: NARRATIVE SKIN EXAM: 1+ pitting edema bilaterally Data : 08/29/19 05:26 08/29/19 05:26 A&P Assessment and plan (1) Acute respiratory failure: -Secondary to heart failure exacerbation -It is not known if he has diastolic or systolic heart failure -Patient has bilateral lower extremity edema, minimal pulmonary vascular congestion on chest x-ray, his BNP is minimal at 128, but likely an underestimation given his obesity -Echocardiogram showed ejection fraction of 60%, no gross wall motion abnormalities Plan: -Lasix 40 mg IV twice daily -Adam catheter in place, strict I's and O's, fluid restriction to 1500 cc -Get out of bed daily Status: Acute (2) Cellulitis: -Panniculitis -White blood cell count 19.9, CRP 8, pro-Khadar 0.06, lactic acid 1.7 -CT scan of the abdomen shows evidence of cellulitis -Area looks a bit more improved today PLAN: -Broad-spectrum antibiotics vancomycin and Zosyn -Monitor for clinical progress -Hopefully de-escalate antibiotics tomorrow after 48 hours of coverage Status: Acute (3) Hyperlipidemia: Status: Acute (4) Congestive heart failure: Status: Acute (5) Hypertension: -Patient continues to have elevated blood pressures this morning -I have added chlorthalidone 25 mg once daily -I have added clonidine 0.1 mg twice daily Status: Acute (6) Diabetes type 2, uncontrolled: -Moderate dose sliding scale -Levemir 60 units at bedtime Status: Acute (7) Gout: Status: Acute (8) Morbid obesity: Status: Acute (9) Panniculitis: Status: Acute Attestations Medical Necessity Statement*: Requires continued hospitalization due to CHF exacerbation, panniculitis Coding Level of Care Code Acute Horticultural Nursery Assistant for [facility] [place] Diagnoses Acute respiratory failure J96.00 Cellulitis L03.90 Hyperlipidemia E78.5 Congestive heart failure I50.9 Hypertension I10 Diabetes type 2, uncontrolled E11.65 Gout M10.9 Morbid obesity E66.01 Panniculitis M79.3
[2019-08-29 11:30] LABS: Glucose Point of Care 246 mg/dL (70-110)
[2019-08-29 12:22] LABS: Vancomycin Trough 17.9 ug/mL (10-15)
[2019-08-29] MEDS: enoxaparin 40 mg/0.4 mL Syringe SUBCUT (16:29)
[2019-08-29 16:51] LABS: Glucose Point of Care 140 mg/dL (70-110)
[2019-08-29] MEDS: LORazepam 0.5 mg Tablet PO (17:57)
[2019-08-29] MEDS: latanoprost 0.005% Op Soln 2.5 mL Btl 1 DROP EYE-BOTH (20:11)
[2019-08-29] MEDS: trazodone 50 mg Tablet PO (20:12)
[2019-08-29] MEDS: hyDROXYzine 25 mg Capsule PO (20:12)
[2019-08-29] MEDS: venlafaxine 75 mg Tablet PO (20:12)
[2019-08-29 20:50] LABS: Glucose Point of Care 210 mg/dL (70-110)
[2019-08-30] VITALS: BP 148/54; PULSE 64; RESP 18; TEMP 36.5; O2SAT 91
[2019-08-30] MEDS: piperacillin-tazobactam 3.375 GM in sodium chloride 0.9% (plus) 50 ML IV ×2 (01:35→10:51)
[2019-08-30 04:00] VITALS: BP 173/82; PULSE 68; RESP 22; TEMP 36.5; O2SAT 93
[2019-08-30 05:31] LABS: Basophils # 0.1 10^3/uL (0.0-0.1); Basophils % 0.5 %; Eosinophils # 0.6 10^3/uL (0.0-0.8); Hematocrit 38.9 % (42.0-52.0); Hemoglobin 11.9 g/dL (11.7-16.6); Lymphocytes % 52.2 %; Mean Corpuscular HGB Conc 30.6 g/dL (30.0-36.0); Mean Corpuscular Hemoglobin 25.6 pg (28.0-34.0); Mean Corpuscular Volume 83.8 fL (80-94); Mean Platelet Volume 9.7 fL (7.4-10.4); Monocytes % 5.2 %; Neutrophils # 7.4 10^3/uL (1.8-7.7); Neutrophils % 38.7 %; Nucleated Red Blood Cells % 0 %; Platelet Count 392 10^3/cmm (130-400); Red Blood Count 4.64 10^6/uL (4.1-5.3); Red Cell Distribution Width 16.3 % (12.1-15.1); White Blood Count 19.2 10^3/uL (4.0-10.0)
[2019-08-30] MEDS: venlafaxine 75 mg Tablet 150 MG PO ×2 (05:36→11:49)
[2019-08-30 05:42] LABS: Slide Review Slide Review Perform
[2019-08-30 05:51] LABS: Alanine Aminotransferase 8 U/L (0-41); Alkaline Phosphatase 113 IU/L (40-130); Anion Gap 14.5 (5-19); Aspartate Amino Transferase 17 U/L (0-40); Blood Urea Nitrogen 10 mg/dL (8-23); Calcium 9.3 mg/dL (8.5-10.5); Carbon Dioxide 30 mmol/L (22-29); Chloride 98 mmol/L (98-107); Globulin 3.8 g/dL (1.3-4.6); Glucose 137 mg/dL (65-115); Osmolality Calculated 286 mOsm/kg (285-295); Potassium 3.5 mmol/L (3.5-5.1); Sodium 139 mmol/L (136-145); Total Bilirubin 0.4 mg/dL (0.15-1.2); Total Protein 6.8 g/dL (6.6-8.7)
[2019-08-30 06:17] LABS: Glucose Point of Care 133 mg/dL (70-110)
[2019-08-30 08:00] VITALS: BP 135/77; PULSE 62; RESP 18; TEMP 36.5; O2SAT 93
[2019-08-30 08:14] VITALS: BP 173/82
[2019-08-30] MEDS: buPROPion SR (12 HR) 150 mg Tablet PO (08:14)
[2019-08-30] MEDS: cloNIDine 0.1 mg Tablet PO (08:14)
[2019-08-30] MEDS: allopurinol 300 mg Tablet PO (08:15)
[2019-08-30] MEDS: atorvastatin 40 mg Tablet 20 MG PO (08:15)
[2019-08-30] MEDS: lisinopril 20 mg Tablet 40 MG PO (08:16)
[2019-08-30] MEDS: verapamil ER 240 mg Tablet PO (08:16)
[2019-08-30] MEDS: chlorthalidone 25 mg Tablet PO (08:16)
[2019-08-30] MEDS: metoprolol tartrate 50 mg Tablet PO (08:16)
[2019-08-30] MEDS: dorzolamide 2% Op Soln 10 mL Btl 1 DROP EYE-RIGHT (08:16)
[2019-08-30] MEDS: fluticasone nasal spray 16gm Btl 1 SPRAY INTRANASAL (08:17)
[2019-08-30] MEDS: nystatin cream 30 gm 1 APPLIC TOPICAL (08:17)
[2019-08-30] MEDS: triamcinolone 0.1% cream 15 gm 1 APPLIC TOPICAL (08:18)
[2019-08-30] MEDS: FUROsemide 10 mg/mL SDV 4mL 40 MG IVP (09:04)
[2019-08-30 11:05] VITALS: BP 147/72; PULSE 63; RESP 16; TEMP 36.4; O2SAT 94
[2019-08-30 11:19] LABS: Glucose Point of Care 180 mg/dL (70-110)
--- NOTE | 2019-08-30 14:19 | PM.DCS ---
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 Please follow up resolution of cellulitis after treatment, if not resolving, consider other causes, including may need to consider excluding other causes including chronic trauma or possibly malignancy. (4) Hyperlipidemia: Status: Acute (5) Hypertension: Status: Acute (6) Diabetes type 2, uncontrolled: Status: Acute (7) Gout: Status: Acute (8) Morbid obesity: Status: Acute (9) Panniculitis: Status: Acute Reason for Visit Reason for Visit: Reason For Visit: SOB Hospital Course Hospital Course: Pleasant 69-year-old gentleman with history of chronic congestive heart failure, chronic bilateral lower extremity edema, morbid obesity, DM 2, HTN, HLD, CVA was admitted with acute respiratory failure due to congestive heart failure, which appears was acute diastolic, with normal ejection fraction on TTE, 60%, and otherwise unremarkable echocardiogram, was treated with IV diuresis with Lasix. He states that he does take his morning Lasix at home, although a number of times misses the afternoon dose as it makes him urinate well into the evening of about 10 PM or so. It appears cumulative he has lost about 5-1/2 L while standing here, and subjectively has noticed a significant difference. He is also been treated with IV antibiotics with vancomycin and Zosyn due to cellulitis of the pannus, with noted chronic appearing changes suspected possibly secondary to chronic stasis. He will complete a course of doxycycline at home, although, his WBC count will need to be followed up. With cellulitis, possibly panniculitis of pannus suspected secondary to chronic stasis and reinfection, however, in case of lack of improvement other causes may need to be excluded, potentially biopsy considered. We will refer him for follow-up with wound care clinic. Discussed with him to elevate pannus against gravity. Please continue to assist him with management of his volume status, congestive heart failure, large pannus, as well as other chronic morbidities. He also notes that he suffers from chronic anxiety and depression for which he has been seeing a psychiatrist. He denies any SI or HI. We will continue his home medications at this time. Encouraged him to follow-up with psychiatry in office to optimize his medications. Physical Exam Const: COMMON NORMALS: no apparent distress and oriented x3 NUTRITIONAL APPEARANCE: obese morbidly obese HENMT: COMMON NORMALS: oropharynx normal Neck/C-Spine: COMMON NORMALS: no JVD Resp: COMMON NORMALS: normal respiratory effort and clear to auscultation bilaterally AUSCULTATION: clear to auscultation bilaterally Cardio: COMMON NORMALS: no JVD, regular rhythm, S1 normal heart sound, S2 normal heart sound and no murmurs RHYTHM: regular rhythm HEART SOUNDS: S1 normal and S2 normal GI: COMMON NORMALS: normal to inspection, nondistended, normoactive bowel sounds, soft to palpation and non-tender PALPATION: Yes soft RECTAL EXAM: Yes other (Very large pannus with chronic changes, stasis) Extremity: COMMON NORMALS: no joint enlargement and no pedal edema Neuro: COMMON NORMALS: oriented x3 and moves all extremities Skin: COMMON NORMALS: no rashes or lesions noted GENERAL SKIN EXAM: no rashes or lesions noted Discharge Data Data Completed and Pending: Completed Studies During Hospitalization Category Date Time Status CT abdomen pelvis w con* [id number] Urge nt Cat Scan 08/28/19 12:12 Completed XR chest 1V gay ble [id number] Stat Exams 08/28/19 09:16 Completed CV echo complete* [id number] Urgent Ultrasound 08/28/19 14:39 Completed Pending at discharge Category Date Time Status Complete Blood Co unt w/Auto AM LABS Lab 08/31/19 04:00 Ordered Comprehensive Met abolic Panel AM LA BS Lab 08/31/19 04:00 Ordered Magnesium AM LABS Lab 08/31/19 04:00 Ordered Phosphorus AM LAB S Lab 08/31/19 04:00 Ordered Labs from last 24 hours 08/30/19 08/30/19 08/30/19 11:12 06:10 04:53 WBC RBC Hgb Hct MCV MCH MCHC RDW Plt Count MPV Neut % (Auto) Lymph % (Auto) [place] % (Auto) Eos % (Auto) Baso % (Auto) Neut # (Auto) Lymph # (Auto) [place] # (Auto) Eos # (Auto) Baso # (Auto) Nucleated RBC % (a uto) Nucleated RBCs # Sodium 139 Potassium 3.5 Chloride 98 Carbon Dioxide 30 H Anion Gap 14.5 BUN 10 Creatinine 1.0 Glucose 137 H POC Glucose 180 133 Calculated Osmolal ity 286 Calcium 9.3 Phosphorus 3.0 Magnesium 2.0 Total Bilirubin 0.4 AST 17 ALT 8 Alkaline Phosphata se 113 Total Protein 6.8 Albumin 3.0 L Globulin 3.8 08/30/19 08/29/19 08/29/19 04:53 20:46 16:47 WBC 19.2 H RBC 4.64 Hgb 11.9 Hct 38.9 L MCV 83.8 MCH 25.6 L MCHC 30.6 RDW 16.3 H Plt Count 392 MPV 9.7 Neut % (Auto) 38.7 Lymph % (Auto) 52.2 [place] % (Auto) 5.2 Eos % (Auto) 3.0 Baso % (Auto) 0.5 Neut # (Auto) 7.4 Lymph # (Auto) 10.0 H [place] # (Auto) 1.0 H Eos # (Auto) 0.6 Baso # (Auto) 0.1 Nucleated RBC % (a uto) 0 Nucleated RBCs # 0.0 Sodium Potassium Chloride Carbon Dioxide Anion Gap BUN Creatinine Glucose POC Glucose 210 140 Calculated Osmolal ity Calcium Phosphorus Magnesium Total Bilirubin AST ALT Alkaline Phosphata se Total Protein Albumin Globulin Vitals: Last Vital Signs Temp 97.6 F 08/30/19 11:05 Pulse 63 08/30/19 11:05 Resp 16 08/30/19 11:05 BP 147/72 08/30/19 11:05 Pulse Ox 94 08/30/19 11:05 Discharge Plan Discharge Patient Disposition: Home Health Service Condition: Stable Prescriptions: New doxycycline hyclate 100 mg capsule 100 mg PO BID 7 Days Qty: 14 RF: 0 polyethylene glycol 3350 [Miralax] 17 gram/dose powder 17 gm PO BID Qty: 60 RF: 0 Continued latanoprost 0.005 % drops See Rx Instructions .ROUTE .COMPLEX RF: 0 bupropion HCl 150 mg tablet sustained-release 12 hr 150 mg PO BID RF: 0 atorvastatin 20 mg tablet 20 mg PO DAILY RF: 0 venlafaxine 75 mg tablet See Rx Instructions .ROUTE .COMPLEX RF: 0 trazodone 50 mg tablet 50 mg PO BEDTIME RF: 0 Tylenol Extra Strength 500 mg Tablet 1,000 mg PO PRN RF: 0 triamcinolone acetonide 0.1 % Cream 1 applic TOPICAL BID RF: 0 quinapril 40 mg tablet 40 mg PO BID RF: 0 nystatin 100,000 unit/gram Cream 1 applic TOPICAL BID RF: 0 metoprolol tartrate 50 mg tablet 50 mg PO BID RF: 0 ibuprofen 200 mg Tablet 800 mg PO PRN RF: 0 verapamil 240 mg tablet extended release 240 mg PO DAILY RF: 0 allopurinol 300 mg tablet 300 mg PO DAILY RF: 0 fluticasone propionate 50 mcg/actuation spray,suspension 1 spray INTRANASAL DAILY RF: 0 dorzolamide 2 % drops See Rx Instructions .ROUTE .COMPLEX RF: 0 buspirone 15 mg tablet 15 mg PO QID RF: 0 hydroxyzine pamoate 25 mg capsule 25 mg PO TID PRN (Reason: UNKNOWN) RF: 0 Novolog Flexpen U-100 Insulin 100 unit/mL (3 mL) insulin pen See Rx Instructions .ROUTE .COMPLEX RF: 0 Levemir FlexTouch U-100 Insuln 100 unit/mL (3 mL) insulin pen 60 unit SUBCUT BEDTIME RF: 0 furosemide 40 mg tablet See Rx Instructions .ROUTE .COMPLEX Qty: 90 RF: 0 Discharge Orders: Discharge Order (Routine); Ordered 08/30/19 Ordered By: Caden Ortiz Other Ambulatory Orders: Complete Blood Count w/Auto (Routine) Timeframe: 1 Week Location: Determined by Patient Ordered By: Caden Ortiz Referrals: Your, psychiatrist [Other] - 1 week (anxiety, depression) A, 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 Please see wound care clinic for follow up on pannus cellulitis, panniculitis. Please make an appointment with your psychiatrist for continuation of care for anxiety and depression. Avoid constipation. Add fiber to diet. Consider dulcolax suppository. Please speak with your primary acre provider to follow up elevated white blood cell count and confirm resolution after treatment of the cellulitis/exclude need to assess for other causes. If without resolution, biopsy may need to be considered. Discharge Attestations Time Spent in Discharge Care*: greater than 30 min Quality Metrics Clinical Quality Measures During this hospital stay, did patient experience: None Coding Level of Care Code Acute [employer] for [facility] Fwd Diagnoses Acute respiratory failure J96.00 Congestive heart failure I50.9 Cellulitis L03.90 Hyperlipidemia E78.5 Hypertension I10 Diabetes type 2, uncontrolled E11.65 Gout M10.9 Morbid obesity E66.01 Panniculitis M79.3
[2019-08-30 14:45] VITALS: BP 147/72; PULSE 63; RESP 16; TEMP 36.4; O2SAT 94
== END 2019-08-30 16:51 | disposition home health service (06) | DRG 291 ==
LOC: ER 12:17 → MEDSURG 13:58
PROVIDERS: Admitting Provider Family Medicine; Emergency Provider Emergency Medicine; Visit Provider Internal Medicine
DX: I11.0 Hypertensive heart disease with heart failure (principal); J96.00 Acute respiratory failure, unspecified whether with hypoxia or hypercapnia; I50.31 Acute diastolic (congestive) heart failure; Z68.43 Body mass index [BMI] 50.0-59.9, adult; E78.5 Hyperlipidemia, unspecified; E11.65 Type 2 diabetes mellitus with hyperglycemia; E66.01 Morbid (severe) obesity due to excess calories; M10.9 Gout, unspecified; M79.3 Panniculitis, unspecified; Z86.73 Personal history of transient ischemic attack (TIA), and cerebral infarction without residual deficits; F41.8 Other specified anxiety disorders; Z79.4 Long term (current) use of insulin; M19.90 Unspecified osteoarthritis, unspecified site; Z87.891 Personal history of nicotine dependence; Z96.0 Presence of urogenital implants
CPT/HCPCS: 12345; 36415; 36416; 36600; 71045; 74177; 80053; 80061; 80202; 81001; 82803; 82962; 83036; 83605; 83735; 83880; 84100; 84145; 84484; 85025; 85610; 85651; 86140; 87804; 93005; 93306; 96372; 96375; 97110; 97116; 97162; 97165; 97535; 99282; A9270; J1650; J1815; J1940; J2543; J3370; J7040; Q9967

== ENCOUNTER 2019-11-03 18:36 | Outpatient (CLI) | payer MEDICARE, SELFPAY ==
[2019-11-03 19:33] LABS: Creatinine Urine, Random 129 mg/dL (39-259); Microalbum Creatinine Ratio Ur 16 mg/dL (0-20); Microalbumin Random Urine 2 ug/dL (0-20)
== END 2019-11-03 18:37 | disposition home or self-care (01) ==
LOC: LAB 18:39
PROVIDERS: Visit Provider Family Medicine
DX: R80.9 Proteinuria, unspecified (principal)
CPT/HCPCS: 82044